=== PATIENT | male | born 1970 | race Caucasian/White ===

== ENCOUNTER 2016-11-04 00:53 | Emergency (ER) | payer MEDICARE, OTHER ==
[~2016-11-04] VITALS: Ht 180.3 cm; Wt 70.0 kg
[~2016-11-04 00:53] MED LIST: ALPR0.5T6 PO; ATOR20TA42 PO; CALTTAB6 PO; ERGO50000 PO; LEXI700T PO; NORV100C PO; SERT100 PO; TRUVTAB2 PO; VALT1TAB26 PO
[2016-11-04 00:57] VITALS: BP 132/83; PULSE 78; RESP 20; TEMP 98.7; O2SAT 99
[2016-11-04] MEDS ORDERED: MORPHINE SULFATE 8 MG/ML INJ IM ONE (01:15)
[2016-11-04 01:42] VITALS: RESP 16
--- NOTE | 2016-11-04 02:04 | RADRPT ---
EXAM DATE/TIME: 11/04/2016 01:16 [place] COMPARISON: No previous studies available for comparison. INDICATIONS : Pt fell through the stairs 3 days ago, shortness of breath and right side rib pain. MEDICAL HISTORY : None. SURGICAL HISTORY : None. ENCOUNTER: Initial ACUITY: 3 days PAIN SCORE: 8/10 LOCATION: Bilateral chest FINDINGS: PA and lateral views of the chest demonstrate the lungs to be symmetrically aerated without evidence of mass, infiltrate or effusion. The cardiomediastinal contours are unremarkable. Osseous structure s are intact. CONCLUSION: No acute disease. Brandon Sanderson MD on November 04, 2016 at 2:02 Board Certified Radiologist. This report was verified electronically.
--- NOTE | 2016-11-04 02:07 | PD ---
HPI Chief Complaint: Respiratory Distress Time Seen by Provider: 01:01 Travel History International Travel<30 days: No Contact w/Intl Traveler<30days: No Traveled to known affect area: No History of Present Illness HPI Patient is a 46 year old male who comes in complaining of pain to the right side of his chest after a fall 3 days ago. He says the pain got worse today. He says taking deep breaths makes the pain worse. He tried Ibuprofen at home without much relief. He denies any other injuries. He also says he has 2 rajiv in his head from a month ago from a previous fall and he would like to have these removed. PFSH Past Medical History Autoimmune Disease: Yes (hiv) Blood Disorders: No Anxiety: Yes (PANIC) Cancer: No Cardiovascular Problems: No Cerebrovascular Accident: No Diabetes: No Diminished Hearing: No Endocrine: No Gastrointestinal Disorders: Yes (COLOSTOMY) GERD: Yes Genitourinary: Yes (SELF CATH AT TIMES) Hepatitis: Yes (HEP C) Hiatal Hernia: Yes Immune Disorder: Yes (HIV) Kidney Stones: No Musculoskeletal: No Neurologic: No Psychiatric: Yes (hx of anxiety) Reproductive: No Respiratory: No Migraines: No Myocardial Infarction: No Renal Failure: No Seizures: No Thyroid Disease: No Ulcer: No Tetanus Vaccination: < 5 Years Past Surgical History Abdominal Surgery: Yes Body Medical Devices: meliton ankles lower to mid back hardware Cardiac Surgery: No Ear Surgery: No Endocrine Surgery: No Eye Surgery: No Genitourinary Surgery: Yes Gynecologic Surgery: No Joint Replacement: No Oral Surgery: No Pacemaker: No Thoracic Surgery: Yes Other Surgery: Yes Social History Alcohol Use: Yes (SELDOM) Tobacco Use: Yes (PPD) Substance Use: No Allergies-Medications (Allergen,Severity, Reaction): Coded Allergies: No Known Allergies (Unverified , 11/04/16) Reported Meds & Prescriptions Reported Meds & Active Scripts Active Reported Truvada (Emtricitabine/Tenofovir) Tab 1 Tab PO DAILY Norvir (Ritonavir) 100 Mg Cap 100 Mg PO DAILY Lexiva (Fosamprenavir Calcium) 700 Mg Tab 2 Tab PO DAILY Alprazolam ER (Alprazolam) 0.5 Mg Tab 0.5 Mg PO TID Review of Systems General / Constitutional: No: Fever, Chills Eyes: No: Blurred Vision HENT: No: Headaches, Lightheadedness Respiratory: No: Shortness of Breath Gastrointestinal: No: Nausea, Vomiting Musculoskeletal: Positive: Pain Skin: No Rash, No Change in Pigmentation Neurologic: No: Weakness, Dizziness Physical Exam Narrative GENERAL: Awake and alert, in no acute distress. SKIN: Focused skin assessment warm/dry. Abrasion to the right chest wall. HEAD: Atraumatic. Normocephalic. EYES: Pupils equal and round. No scleral icterus. ENT: Mucous membranes pink and moist. NECK: Trachea midline. No JVD. CARDIOVASCULAR: Regular rate and rhythm. No murmur appreciated. Tender to palpation of the right chest wall. RESPIRATORY: No accessory muscle use. Clear to auscultation. Breath sounds equal bilaterally. MUSCULOSKELETAL: No obvious deformities. No clubbing. No cyanosis. No edema. NEUROLOGICAL: Awake and alert. No obvious cranial nerve deficits. Motor grossly within normal limits. Normal speech. Data Data Last Documented VS Vital Signs Date Time Temp Pulse Resp B/P Pulse Ox O2 Delivery O2 Flow Rate FiO2 11/04/16 01:04 18 99 Nasal Cannula 2 11/04/16 00:57 98.7 78 132/83 Orders Chest, Pa & Lat (11/04/16 ) Morphine Inj (Morphine Inj) (11/04/16 01:15) MDM Medical Decision Making Medical Screen Exam Complete: Yes Emergency Medical Condition: Yes Differential Diagnosis Rib fracture vs pneumothorax vs musculoskeletal strain Narrative Course Patient is a 46 year old male who comes in complaining of right sided chest wall pain. Exam shows tenderness to the chest wall. Chest XR performed shows no evidence of pneumothorax, no rib fractures. Given Morphine for pain. Rajiv removed. Discharged home. Diagnosis Primary Impression: Chest wall pain Patient Instructions: Chest Wall Pain (ED), General Instructions Additional Instructions: Take Tylenol or Ibuprofen as needed for pain. Follow up with a primary care doctor. Return to the ED as needed for any worsening symptoms. Disposition: 01 DISCHARGE HOME Condition: Stable Елена Tanner MD Nov 04, 2016 02:07
[2016-11-04] MEDS ORDERED: KETOROLAC TROMETHAMINE 60 MG/2 ML (IM) VIAL IM ONE (02:15)
[2016-11-04 02:21] VITALS: BP 127/63
== END 2016-11-04 02:22 | disposition home or self-care (01) ==
LOC: NEPC 00:53
DX: R07.89 Other chest pain (principal); F41.9 Anxiety disorder, unspecified; K21.9 Gastro-esophageal reflux disease without esophagitis; B19.20 Unspecified viral hepatitis C without hepatic coma; F17.200 Nicotine dependence, unspecified, uncomplicated; Z21 Asymptomatic human immunodeficiency virus [HIV] infection status; Z79.899 Other long term (current) drug therapy
CPT/HCPCS: 71020; 96372; 99284; J2270